=== PATIENT | male | born 2000 | race Caucasian/White ===

== ENCOUNTER 2023-11-30 15:51 | Emergency (ER) | payer OTHER, MEDICAID ==
[~2023-11-30] VITALS: Ht 182.9 cm; Wt 79.0 kg
[2023-11-30 15:57] VITALS: O2SAT 100
[2023-11-30 16:09] VITALS: BP 138/78; PULSE 70; RESP 20; TEMP 98.1; O2SAT 100
[2023-11-30] MEDS: ACETAMINOPHEN 325MG TABLET PO ONE (17:03)
== END 2023-11-30 18:10 | disposition home or self-care (01) ==
LOC: ER 15:51
DX: S09.90XA Unspecified injury of head, initial encounter (principal); V49.88XA Car occupant (driver) (passenger) injured in other specified transport accidents, initial encounter; Y93.89 Activity, other specified; Y92.89 Other specified places as the place of occurrence of the external cause; Y99.8 Other external cause status
CPT/HCPCS: 99284